=== PATIENT | female | born 2000 | race African-American/Black ===

== ENCOUNTER 2018-12-23 23:29 | Emergency (ER) | payer OTHER ==
[~2018-12-23] VITALS: Ht 172.7 cm; Wt 78.2 kg
[2018-12-24 05:06] VITALS: BP 103/59
== END 2018-12-24 05:07 | disposition home or self-care (01) ==
LOC: ER 23:29
DX: R55 Syncope and collapse (principal); F12.10 Cannabis abuse, uncomplicated
CPT/HCPCS: 81025; 93005; 99284; Z7610